=== PATIENT | male | born 1950 | race Caucasian/White ===

== ENCOUNTER 2020-05-26 06:34 | Day surgery (SDC) | payer MEDICARE, BC ==
[2020-05-22 16:05] VITALS: BMI 38.5
[2020-05-26] MEDS ORDERED: Iothalamate Meglumine 60% 50 ML VIAL FS ONE (08:14)
[2020-05-26] MEDS ORDERED: Fentanyl 100 MCG/2 ML VIAL ONE (08:51)
[2020-05-26] MEDS ORDERED: SUGAMMADEX SODIUM 500 MG/5 ML VIAL ONE (09:23)
--- NOTE | 2020-05-26 10:14 | OP ---
DATE OF PROCEDURE: 05/26/2020 PREOPERATIVE DIAGNOSES: 1. Gross and microscopic hematuria. 2. Atrophic left kidney. POSTOPERATIVE DIAGNOSES: 1. Gross and microscopic hematuria. 2. Atrophic left kidney. PROCEDURE PERFORMED: Cysto, left retrograde, and left stent placement. ANESTHETIC: General. ESTIMATED BLOOD LOSS: Minimal. FINDINGS: He had moderate lateral and median lobes. He had no bladder tumor, foreign body, or stone. Retrograde study showed a distal third left ureteral stone. Earlier, it did not have any hydro related to it. We were able to manipulate by it with an angled-tip Glidewire. DRAINS PLACED: A 4.8 x 24 double-J stent. OPERATIVE TECHNIQUE: After obtaining written and verbal consent from the patient after receiving IV antibiotics, he was taken to the operating suite. He was placed in supine position on the treatment table. PlexiPulses were placed on his lower extremities and turned on. He was given a general anesthetic and endotracheal intubation. He was then placed in the dorsal lithotomy position and sterilely prepped and draped for the above procedure. The fluoroscopy unit was brought down and positioned over him, and a audiovisual production specialist film was taken. There was a calcification in the left lower quadrant. His prior CT had not shown a left distal ureteral stone, however. We then went ahead and performed cystoscopy with a 22-Mauritian sheath. This was well lubricated and passed under direct vision through the male urethra into the urinary bladder with the aid of a 30-degree lens, video camera, and monitor. The bladder was filled and emptied a number of times. A 5-Mauritian cone-tip catheter was flushed with contrast placed in the left ureteral orifice and about 10 cc of contrast were injected in a retrograde manner showing no hydronephrosis, but a persistent filling defect in the lower third of the left ureter in the region where calcification was seen on the audiovisual production specialist film. We attempted to feed a guidewire past this, it would not go, so we sent a [place] up to this location just distal to the stone and then used the angled Glidewire to get by it, then passed the Pollack catheter up in the region of the renal pelvis, removing the Glidewire and replacing it with a guidewire, removing the Pollack catheter and then placing the 4.8 x 24 double-J stent over the guidewire and pushing it into place with aid of a pusher, so its proximal end coiled in the renal pelvis and its distal end coiled in the bladder when the wire was removed. The bladder was drained. The instruments were removed. The string was left attached to the distal end of the stent and was cut 2 to 3 inches distal to the urethral meatus. He was removed from the dorsal lithotomy position to the supine position and awakened, extubated, and taken by stretcher to the recovery room. Job ID: [id number]
[2020-05-26] MEDS ORDERED: Lidocaine 1% PF 5 ML VIAL ONE (10:29)
[2020-05-26] MEDS ORDERED: Rocuronium Bromide 10 MG/ML (10ML VIAL) ONE (10:29)
[2020-05-26] MEDS ORDERED: Ondansetron PF 4 MG/2 ML Vial ONE (10:29)
[2020-05-26] MEDS ORDERED: PROPOFOL 200 MG/20 ML VIAL ONE (10:29)
[2020-05-26] MEDS ORDERED: Dexamethasone 20 MG/5 ML VIAL ONE (10:29)
--- NOTE | 2020-05-27 07:07 | RAD ---
XR IVP Retrograde History: Ureteral stent placement Comparison: CT abdomen and pelvis May 06, 2020 Findings: Multiple fluoroscopic images were obtained. Placement of a left double-J ureteral stent. Th e left distal ureteral calculus is still present. Impression: Fluoroscopy for procedure purposes.
--- NOTE | 2020-05-27 22:10 | EKG ---
Test Reason : PREOP Blood Pressure : / mmHG Vent. Rate : 059 BPM Atrial Rate : 059 BPM P-R Int : 200 ms QRS Dur : 092 ms QT Int : 440 ms P-R-T Axes : 064 -13 063 degrees QTc Int : 435 ms Sinus bradycardia Nonspecific ST and T wave abnormality Abnormal ECG No previous ECGs available Confirmed by Yoon HENRY ([id number]) on 05/27/2020 10:10:03 PM Referred By: CLARK Confirmed By:Yoon HENRY
== END 2020-05-26 11:15 | disposition home or self-care (01) ==
LOC: SDC 06:34
PROVIDERS: ATTEND Urology
PROC: 0T778DZ Dilation of Left Ureter with Intraluminal Device, Via Natural or Artificial Opening Endoscopic (ICD-10-PCS; principal; 2020-05-26)
DX: N26.1 Atrophy of kidney (terminal) (principal); N20.1 Calculus of ureter; I10 Essential (primary) hypertension; E78.5 Hyperlipidemia, unspecified; F41.9 Anxiety disorder, unspecified; G47.30 Sleep apnea, unspecified; E66.01 Morbid (severe) obesity due to excess calories; Z68.38 Body mass index [BMI] 38.0-38.9, adult; Z79.82 Long term (current) use of aspirin; Z79.899 Other long term (current) drug therapy; Z95.1 Presence of aortocoronary bypass graft
CPT/HCPCS: 74420; 93005; 93010; J0690; J1100; J2405; J2704; J3010

== ENCOUNTER 2020-06-02 15:17 | Outpatient (CLI) | payer MEDICARE, BC ==
[2020-05-23 14:14] LABS: Hemoglobin 17.1 g/dL (13.5-17.5); Mean Corpuscular HGB CONC 32.3 g/dL (32.0-36.0); Mean Corpuscular Hemoglobin 28.3 pg (27.0-33.0); Mean Corpuscular Volume 87.6 fl (81.2-95.1); Platelet Count 227 10x3/uL (150-450); RBC Distribution Width 16.3 % (11.5-14.5); Red Blood Cell (RBC) Count 6.04 10x6/uL (4.32-5.72); White Blood Cell (WBC) Count 11.3 10x3/uL (3.5-10.5)
[2020-05-23 14:32] LABS: Anion Gap 17 mmol/L (10-20); BUN (Urea Nitrogen) 33 mg/dL (8.4-25.7); Calc. Creatinine Clearance 0 mL/min (70-130); Calcium 8.9 mg/dL (7.8-10.44); Carbon Dioxide 24 mmol/L (23-31); Chloride 106 mmol/L (98-107); Glucose 88 mg/dL (83-110); Sodium 142 mmol/L (136-145)
[2020-05-23 14:36] LABS: PTT 29.4 sec (22.0-33.0); Prothrombin Time 10.7 sec (9.5-12.1)
[2020-05-23 15:56] LABS: Bilirubin Neg (Negative); Blood, Urine 150 (Negative); Clarity Clear (Clear); Glucose, Urine (Dipstick) Normal (Negative); Ketone, Urine Negative (Negative); Leukocyte Negative (Negative); Nitrite Negative (Negative); Protein, Urine (Dipstick) 30 mg/dl (Neg-Trace); Specific Gravity, Urine 1.015 (1.002-1.036); Urobilinogen Normal mg/dL (Less than 2)
[2020-05-23 16:57] LABS: Squamous Epithelial 0-3 HPF (0-3)
[2020-05-23 16:58] LABS: Bacteria/HPF Rare-Few HPF (None Seen); Mucous/LPF Rare LPF (<2+)
[2020-05-23 22:16] LABS: SARS-CoV-2 PCR by NAA Not Detected (NotDetected)
[2020-06-02 16:40] LABS: Bilirubin Neg (Negative); Blood, Urine 250 (Negative); Clarity Cloudy (Clear); Glucose, Urine (Dipstick) Normal (Negative); Ketone, Urine Negative (Negative); Leukocyte 100 (Negative); Nitrite Negative (Negative); Protein, Urine (Dipstick) 30 mg/dl (Neg-Trace); Specific Gravity, Urine 1.015 (1.002-1.036); Urobilinogen Normal mg/dL (Less than 2); pH, Urine 6.5 (5.0-9.0)
[2020-06-02 16:47] LABS: RBC/HPF Greater than 50 HPF (0-3)
[2020-06-02 16:48] LABS: Bacteria/HPF Rare-Few HPF (None Seen); Mucous/LPF Rare LPF (<2+); Squamous Epithelial 0-3 HPF (0-3); Transitional Epithelial 0-3 HPF (None Seen)
[2020-06-03 01:55] LABS: SARS-CoV-2 PCR by NAA Not Detected (NotDetected)
== END 2020-06-02 15:18 | disposition home or self-care (01) ==
LOC: LABBT 15:17
PROVIDERS: ATTEND Urology
DX: Z01.812 Encounter for preprocedural laboratory examination (principal); Z20.822 Contact with and (suspected) exposure to COVID-19; N20.1 Calculus of ureter
CPT/HCPCS: 80048; 81001 ×2; 85027; 85610; 85730; 87086 ×2; U0003 ×2; U0005 ×2; 87635

== ENCOUNTER 2020-06-05 11:57 | Day surgery (SDC) | payer MEDICARE, BC ==
[2020-06-04 09:09] VITALS: BMI 38.5
[~2020-06-05 11:57] MED LIST: Glycopyrrolate 0.2 MG/ML 5 ML SYRINGE ONE; Lidocaine 1% PF 5 ML VIAL ONE; Ondansetron PF 4 MG/2 ML Vial ONE; PHENYLEPHRINE-NS 100 MCG/ML 10 ML SYRINGE ONE; PROPOFOL 200 MG/20 ML VIAL ONE; Rocuronium Bromide 10 MG/ML (10ML VIAL) ONE; Succinylcholine 200 MG/10 ml SYRINGE FS ONE
[2020-06-05] MEDS ORDERED: Levofloxacin 500 mg/D5W 100 ml Premix Bag ONE (12:11)
[2020-06-05] MEDS ORDERED: Iothalamate Meglumine 60% 50 ML VIAL FS ONE (13:44)
[2020-06-05] MEDS ORDERED: Fentanyl 100 MCG/2 ML VIAL ONE (13:48)
--- NOTE | 2020-06-05 15:29 | RAD ---
EXAM: Retrograde IVP HISTORY: Stent for kidney stones COMPARISON: 05/26/2020 FINDINGS/IMPRESSION: Limited intraoperative fluoroscopic views of the retrograde IVP were submitted f or interpretation. Patient has a left-sided ureteral stent. A wire is eventually placed and contrast administered. The patient has mild to moderate left hydronephrosis. A stent is been replaced and appears in good position.
--- NOTE | 2020-06-05 23:07 | OP ---
DATE OF PROCEDURE: 06/05/2020 PREOPERATIVE DIAGNOSIS: Left ureteral stone. POSTOPERATIVE DIAGNOSIS: Left ureteral stone. PROCEDURES PERFORMED: Cystoscopy, removal of left stent, left rigid ureteroscopy and laser lithotripsy, stone retrieval, and stent replacements. ANESTHETIC: General. ESTIMATED BLOOD LOSS: Minimal. DRAINS PLACED: A 6 x 26 Polaris double-J stent with a string left attached. FINDINGS: He had a 6 to 7 mm left lower third ureteral stone that had not changed position from the time of stent was placed a number of days ago. DESCRIPTION OF PROCEDURE: Obtained written and verbal consent from the patient. After receiving IV antibiotics, he was taken to the operating suite. He was placed in a supine position on the treatment table. PlexiPulses were placed on his lower extremities and turned on. He was given a general anesthetic or oral intubation. He was sterilely prepped and draped for cystoscopy and fluoroscopy was positioned over him. The stone could easily be seen. The indwelling double-J stent was attached to a string, which was brought out through the urethral meatus and a guidewire was fed through this. Fluoroscopic guidance was used to allow the guidewire to go up into the region of the renal pelvis. The stent was removed off the guidewire and discarded. We then brought in a small caliber rigid ureteroscope, passed it under direct vision to the male urethra into the urinary bladder and went up the left ureter adjacent to the guidewire. The stone was easy to get to. The ureter was normal. We used a laser fiber to break it up into smaller and smaller to Whittle away at it to a piece that was small enough to remove that was sent off. The rest of the pieces were small and were not retrieved. We went as far up as about mid ureter with the rigid scope and the distal half of the ureter was completely normal. At this point, the instruments were removed. The cystoscope was backloaded across the green guidewire and then a Pollack catheter was advanced on the green guidewire, placed up to the region of the renal pelvis. Contrast was injected that still showed some hydronephrosis of the upper collecting system. Ureter without any filling defects or extravasation. A new 6 x 26 Polaris double-J stent was placed over the guidewire that had been replaced through the Pollack catheter and then, the stent was pushed up the guidewire and then the guidewire was removed leaving the proximal. The stent coiled in the renal pelvis and its distal end coiled in the bladder. The bladder was drained. The instruments were removed. The string that was attached to the stent was cut about 3 inches distal to the urethral meatus. He was taken out of the dorsal lithotomy position, awakened, extubated, and taken by stretcher to the recovery room. Job ID: [id number]
== END 2020-06-05 15:45 | disposition home or self-care (01) ==
LOC: SDC 11:57
PROVIDERS: ATTEND Urology
PROC: 0TP98DZ Removal of Intraluminal Device from Ureter, Via Natural or Artificial Opening Endoscopic (ICD-10-PCS; principal; 2020-06-05)
PROC: 0TC78ZZ Extirpation of Matter from Left Ureter, Via Natural or Artificial Opening Endoscopic (ICD-10-PCS; 2020-06-05)
PROC: 0T778DZ Dilation of Left Ureter with Intraluminal Device, Via Natural or Artificial Opening Endoscopic (ICD-10-PCS; 2020-06-05)
DX: N13.2 Hydronephrosis with renal and ureteral calculous obstruction (principal); I25.10 Atherosclerotic heart disease of native coronary artery without angina pectoris; I25.2 Old myocardial infarction; I10 Essential (primary) hypertension; F41.9 Anxiety disorder, unspecified; F32.9 Major depressive disorder, single episode, unspecified; Z79.82 Long term (current) use of aspirin; Z79.899 Other long term (current) drug therapy; Z95.1 Presence of aortocoronary bypass graft
CPT/HCPCS: 74420; 82365; 88300; J1956; J2405; J2704; J3010

== ENCOUNTER 2021-01-21 10:45 | Outpatient (CLI) | payer MEDICARE, BC ==
[2021-01-21 11:45] LABS: Hemoglobin 16.7 g/dL (13.5-17.5); Mean Corpuscular HGB CONC 31.9 g/dL (32.0-36.0); Mean Corpuscular Hemoglobin 28.2 pg (27.0-33.0); Mean Corpuscular Volume 88.3 fl (81.2-95.1); Mean Platelet Volume 9.6 fl (7.4-10.4); Platelet Count 239 10x3/uL (150-450); RBC Distribution Width 15.5 % (11.5-14.5); Red Blood Cell (RBC) Count 5.92 10x6/uL (4.32-5.72); White Blood Cell (WBC) Count 10.9 10x3/uL (3.5-10.5)
[2021-01-21 12:25] LABS: PTT 29.8 sec (22.0-33.0); Prothrombin Time 10.9 sec (9.5-12.1)
[2021-01-21 12:28] LABS: Bilirubin Neg (Negative); Blood, Urine 10 (Negative); Clarity Clear (Clear); Glucose, Urine (Dipstick) Normal (Negative); Ketone, Urine Negative (Negative); Leukocyte Negative (Negative); Nitrite Negative (Negative); Protein, Urine (Dipstick) 30 mg/dl (Neg-Trace); Urobilinogen Normal mg/dL (Less than 2)
[2021-01-21 12:33] LABS: Anion Gap 14 mmol/L (10-20); BUN (Urea Nitrogen) 25 mg/dL (8.4-25.7); Calc. Creatinine Clearance 0 mL/min (70-130); Calcium 9.2 mg/dL (7.8-10.44); Carbon Dioxide 24 mmol/L (23-31); Chloride 108 mmol/L (98-107); Glucose 106 mg/dL (83-110); Potassium 4.9 mmol/L (3.5-5.1); Sodium 141 mmol/L (136-145)
[2021-01-21 12:46] LABS: RBC/HPF 0-3 HPF (0-3); Squamous Epithelial 0-3 HPF (0-3); WBC/HPF None Seen HPF (0-3)
[2021-01-21 12:47] LABS: Bacteria/HPF None Seen HPF (None Seen)
[2021-01-21 22:21] LABS: SARS-CoV-2 PCR by NAA Not Detected (NotDetected)
== END 2021-01-21 10:46 | disposition home or self-care (01) ==
LOC: LABBT 10:45
PROVIDERS: ATTEND Urology
DX: Z01.818 Encounter for other preprocedural examination (principal); N20.0 Calculus of kidney; Z20.822 Contact with and (suspected) exposure to COVID-19
CPT/HCPCS: 80048; 81001; 85027; 85610; 85730; 87086; U0003; U0005; 93005; 93010

== ENCOUNTER 2021-01-26 09:12 | Day surgery (SDC) | payer MEDICARE, BC ==
[2021-01-22 14:37] VITALS: BMI 43.6
[2021-01-26 09:44] LABS: Platelet Count 240 thou/uL (130-400)
[2021-01-26 10:00] LABS: EPI 118 SEC (67-199)
[2021-01-26] MEDS ORDERED: Iothalamate Meglumine 60% 50 ML VIAL FS ONE (10:24)
[2021-01-26] MEDS ORDERED: HYDROmorphone 2 MG/ML VIAL ONE (10:38)
[2021-01-26] MEDS ORDERED: SUGAMMADEX SODIUM 200 MG/2 ML VIAL ONE (10:38)
[2021-01-26] MEDS ORDERED: Fentanyl 100 MCG/2 ML VIAL ONE (10:38)
[2021-01-26] MEDS ORDERED: Lidocaine 1% PF 5 ML VIAL ONE (10:50)
[2021-01-26] MEDS ORDERED: ePHEDrine 50 MG/ML VIAL ONE (10:50)
[2021-01-26] MEDS ORDERED: PHENYLEPHRINE-NS 100 MCG/ML 10 ML SYRINGE ONE (10:50)
[2021-01-26] MEDS ORDERED: Dexamethasone 20 MG/5 ML VIAL ONE (10:50)
[2021-01-26] MEDS ORDERED: Ondansetron PF 4 MG/2 ML Vial ONE (10:50)
[2021-01-26] MEDS ORDERED: Rocuronium Bromide 10 MG/ML (10ML VIAL) ONE (10:50)
[2021-01-26] MEDS ORDERED: PROPOFOL 200 MG/20 ML VIAL ONE (10:50)
== END 2021-01-26 13:17 | disposition home or self-care (01) ==
LOC: SDC 09:12
PROVIDERS: ATTEND Urology
PROC: 0TF3XZZ Fragmentation in Right Kidney Pelvis, External Approach (ICD-10-PCS; principal; 2021-01-26)
DX: N20.0 Calculus of kidney (principal); I25.10 Atherosclerotic heart disease of native coronary artery without angina pectoris; I25.2 Old myocardial infarction; I10 Essential (primary) hypertension; G47.30 Sleep apnea, unspecified; Z79.82 Long term (current) use of aspirin; Z79.899 Other long term (current) drug therapy; Z95.1 Presence of aortocoronary bypass graft
CPT/HCPCS: 36415; 85576; J1100; J1170; J2405; J2704; J3010; J3490; Q9961-U8

== ENCOUNTER 2021-10-12 20:26 | Inpatient (IN) | payer MEDICARE, BC ==
[~2021-10-12 20:26] MED LIST changes: -Glycopyrrolate 0.2 MG/ML 5 ML SYRINGE ONE; +Iopamidol-370 76% 500 ML 1 ML ONE; -Lidocaine 1% PF 5 ML VIAL ONE; -Ondansetron PF 4 MG/2 ML Vial ONE; -PHENYLEPHRINE-NS 100 MCG/ML 10 ML SYRINGE ONE; -PROPOFOL 200 MG/20 ML VIAL ONE; -Rocuronium Bromide 10 MG/ML (10ML VIAL) ONE; -Succinylcholine 200 MG/10 ml SYRINGE FS ONE
[2021-10-12 20:56] LABS: Actual Bicarbonate (HCO3a) 18.9 mEq/L (22-28); Analyzer IN Cardio ER; Base Excess (BEa) -7.2 mEq/L (-2.0 to +3.0); CO2 Tension 40.4 mmHg (35.0-45.0); Calcium, Ionized (arterial) 1.09 mmol/L (1.12-1.30); Carboxyhemoglobin (COHb) 0.3 gm% (0.0-3.0); Hemoglobin (Hb) 18.7 g/dL (14.0-18.0); O2 Tension (PaO2), arterial 107.7 mmHg (> 70.0); Potassium - ABG Lab 5.51 mmol/L (3.70-5.30); pH, Arterial 7.29 (7.35-7.45)
[2021-10-12 20:59] LABS: Mean Corpuscular HGB CONC 32.6 g/dL (32.0-36.0); Mean Corpuscular Hemoglobin 28.9 pg (27.0-31.0); Mean Corpuscular Volume 88.7 fL (78.0-98.0); Mean Platelet Volume 7.8 fL (7.4-10.4); Platelet Count 302 thou/uL (130-400); RBC Distribution Width 15.6 % (11.5-14.5); Red Blood Cell (RBC) Count 6.22 mill/uL (4.70-6.10)
[2021-10-12] MEDS ORDERED: cefTRIAXone\\ROCEPHIN 2 GM in Sodium Chloride 0.9% 100 ML IVPB SCH (21:00)
[2021-10-12] MEDS ORDERED: Fentanyl 100 MCG/2 ML VIAL ONE (21:03)
[2021-10-12 21:14] LABS: ALT (SGPT) 64 U/L (8-55); AST (SGOT) 106 U/L (5-34); Albumin 3.9 g/dL (3.4-4.8); Alkaline Phosphatase 145 U/L (40-110); Anion Gap 22 mmol/L (10-20); BUN (Urea Nitrogen) 31 mg/dL (8.4-25.7); Calc. Creatinine Clearance 0 mL/min (70-130); Calcium 8.4 mg/dL (7.8-10.44); Carbon Dioxide 19 mmol/L (23-31); Chloride 107 mmol/L (98-107); Estimated GFR 37; Globulin 3.2 g/dL (2.4-3.5); Glucose 135 mg/dL (83-110); Potassium 6.1 mmol/L (3.5-5.1); Protein, Total 7.1 g/dL (5.8-8.1); Sodium 142 mmol/L (136-145)
[2021-10-12] MEDS ORDERED: Fentanyl CADD 100 ML IV SCH (21:15)
[2021-10-12 21:17] LABS: Amphetamine Not Detected (NotDetected); Barbiturates Screen Not Detected (NotDetected); Benzodiazepine Screen Not Detected (NotDetected); Cocaine Metabolite Screen Not Detected (NotDetected); Methadone Not Detected (NotDetected); Methamphetamine Not Detected (NotDetected); Opiate Screen Not Detected (NotDetected); Oxycodone Screen Not Detected (NotDetected); Phencyclidine (PCP) Not Detected (NotDetected); THC/Cannabinoid Screen Not Detected (NotDetected); Tricyclic Screen Not Detected (NotDetected)
[2021-10-12 21:17] LABS: Band 5 % (5-11); Lymphocytes 10 % (21-51); MDiff Complete? YES; Monocytes 10 % (0-10); Neutrophil 75 % (42-75); Platelet Morphology Comment Appears Adequate; RBC Morphology Normal; White Blood Cell (WBC) Count 20.6 thou/uL (4.8-10.8)
[2021-10-12 21:20] LABS: Puncture Site RRA
[2021-10-12 21:24] LABS: Bilirubin Negative (Negative); Blood, Urine 3+ (Negative); Clarity Turbid (Clear); Glucose, Urine (Dipstick) 100 mg/dL (Negative); Ketone, Urine Negative (Negative); Leukocyte Negative Leu/uL (Negative); Nitrite Negative (Negative); Protein, Urine (Dipstick) 300 mg/dL (Neg-Trace); RBC/HPF Greater than 50 HPF (0-3); Specific Gravity, Urine 1.019 (1.002-1.036); Squamous Epithelial 0-3 HPF (0-3); Urobilinogen Normal mg/dL (Less than 2); WBC/HPF Greater than 50 HPF (0-3); pH, Urine 6.5 (5.0-9.0)
[2021-10-12 21:26] LABS: Bacteria/HPF 1+ HPF (None Seen)
[2021-10-12 21:40] LABS: Acetaminophen Less than 10.0 mcg/mL (10.0-30.0); Alcohol Less than 10 mg/dL (Less than 10); Salicylate Less than 8.0 mg/dL (15.0-30.0)
[2021-10-12] MEDS ORDERED: Propofol 1,000 MG/100 ML VIAL IV ONE (22:03)
[2021-10-12] MEDS ORDERED: Lidocaine 1% MPF 2 ML VIAL ONE (22:15)
[2021-10-12] MEDS ORDERED: Calcium Chloride 1 GM/10 ML Abboject SYRINGE ONE (23:30)
[2021-10-12] MEDS ORDERED: Aspirin 300 MG Suppository ONE (23:30)
[2021-10-12] MEDS ORDERED: Sodium Bicarb 50 MEQ/50 ML Abboject 8.4% SYRINGE ONE (23:30)
[2021-10-12] MEDS ORDERED: Enoxaparin Sodium 100 MG/ML SYRINGE ONE (23:30)
[2021-10-12] MEDS ORDERED: Enoxaparin Sodium 40 MG/0.4 ML SYRINGE ONE (23:31)
[2021-10-13] MEDS ORDERED: Ondansetron PF 4 MG/2 ML Vial IVP PRN (00:01)
[2021-10-13] MEDS ORDERED: Norepinephrine 8 MG/0.9% NS 250 ML IVPB PRN (00:01)
[2021-10-13] MEDS ORDERED: Ventilator Sedation Protocol 1 EACH FS SCH (00:15)
[2021-10-13] MEDS ORDERED: Lactated Ringer's 1,000 ML IV SCH ×3 (00:15→08:37)
[2021-10-13 00:16] LABS: INR-International Normal Ratio 1.1; PTT 31.2 sec (22.9-36.1); Prothrombin Time 14.6 sec (12.0-14.7)
[2021-10-13] MEDS ORDERED: Midazolam HCl 2 mg/2 ml Vial SLOW IVP PRN (00:21)
[2021-10-13 00:24] LABS: Lactic Acid 4.2 mmol/L (0.5-2.2)
[2021-10-13] MEDS ORDERED: Propofol BOLUS 1,000 MG/100 ML VIAL IV PRN (00:30)
[2021-10-13] MEDS ORDERED: DISCONTINUE PREVIOUS NARCOTIC PAIN MEDICATIONS AND BENZODIAZEPINES FS SCH (00:30)
[2021-10-13] MEDS ORDERED: Morphine 2 MG/ML VIAL SLOW IVP PRN (00:30)
[2021-10-13] MEDS ORDERED: Fentanyl CADD 100 ML IV SCH (00:30)
[2021-10-13] MEDS ORDERED: Fentanyl BOLUS 250 ML IVPB PRN (00:30)
[2021-10-13] MEDS ORDERED: Propofol 1,000 MG/100 ML VIAL IV PRN (00:30)
[2021-10-13] MEDS ORDERED: Propofol 1,000 MG/100 ML VIAL IV ONE (00:43)
[2021-10-13] MEDS ORDERED: Acetaminophen 325 MG TAB PO PRN (01:00)
[2021-10-13 01:03] LABS: CKMB 12.6 ng/mL (0-6.6)
[2021-10-13 01:45] VITALS: BMI 40.1
[2021-10-13 02:15] LABS: Anion Gap 18 mmol/L (10-20); BUN (Urea Nitrogen) 38 mg/dL (8.4-25.7); Calc. Creatinine Clearance 55 mL/min (70-130); Calcium 9.1 mg/dL (7.8-10.44); Carbon Dioxide 19 mmol/L (23-31); Chloride 109 mmol/L (98-107); Estimated GFR 27; Glucose 143 mg/dL (83-110); Potassium 4.5 mmol/L (3.5-5.1); Sodium 141 mmol/L (136-145)
[2021-10-13 03:43] LABS: Hemoglobin A1c 5.4 % (4.0-6.0)
[2021-10-13 04:09] LABS: Cardiac Risk 4.3 (Less than 4.5)
[2021-10-13] MEDS: DOBUTamine 500 mg/250 ml 250 ML IVPB SCH ×3 (04:20→13:51)
[2021-10-13 04:29] LABS: Lactic Acid 3.4 mmol/L (0.5-2.2)
[2021-10-13 04:34] LABS: CKMB 17.8 ng/mL (0-6.6)
[2021-10-13] MEDS ORDERED: EPINEPHrine 4 MG in Dextrose 5% in Water 250 ML IVPB SCH (05:00)
[2021-10-13 05:26] LABS: Base Excess (BEa) -8.8 mEq/L (-2.0 to +3.0); CO2 Tension 41.7 mmHg (35.0-45.0); Calcium, Ionized (arterial) 1.16 mmol/L (1.12-1.30); O2 Tension (PaO2), arterial 57.5 mmHg (> 70.0); Potassium - ABG Lab 4.13 mmol/L (3.70-5.30); pH, Arterial 7.25 (7.35-7.45)
[2021-10-13] MEDS ORDERED: Carvedilol 3.125 MG TAB PO SCH (09:00)
[2021-10-13] MEDS ORDERED: Pantoprazole 40 MG VIAL IVP SCH (09:00)
[2021-10-13] MEDS ORDERED: Escitalopram Oxalate 10 mg Tablet PO SCH (09:00)
[2021-10-13] MEDS ORDERED: Bupropion 150 MG XL TAB PO SCH (09:00)
[2021-10-13 09:35] LABS: Actual Bicarbonate (HCO3a) 16.4 mEq/L (22-28); Analyzer IN Cardio ER; Base Excess (BEa) -8.7 mEq/L (-2.0 to +3.0); CO2 Tension 33.4 mmHg (35.0-45.0); Calcium, Ionized (arterial) 1.12 mmol/L (1.12-1.30); Carboxyhemoglobin (COHb) 0.3 gm% (0.0-3.0); Hemoglobin (Hb) 16.8 g/dL (14.0-18.0); Potassium - ABG Lab 3.38 mmol/L (3.70-5.30); pH, Arterial 7.31 (7.35-7.45)
[2021-10-13 09:40] LABS: O2 Tension (PaO2), arterial 56.8 mmHg (> 70.0)
[2021-10-13 09:41] LABS: Puncture Site RRA
[2021-10-13] MEDS: EPINEPHrine 4 MG in Dextrose 5% in Water 250 ML IVP SCH ×2 (11:15→17:24)
[2021-10-13 13:58] VITALS: TEMP 99.5
[2021-10-13 14:26] VITALS: BP 94/72
[2021-10-13] MEDS: Morphine 2 MG/ML VIAL SLOW IVP PRN ×8 (18:24→21:00)
[2021-10-13] MEDS ORDERED: Heparin 5,000 UNITS/ML VIAL SC SCH (21:00)
[2021-10-13] MEDS ORDERED: Atorvastatin Calcium 10 MG TAB PO SCH (21:00)
[2021-10-13] MEDS ORDERED: Dutasteride 0.5 MG CAP PO SCH (21:00)
[2021-10-13] MEDS ORDERED: cefTRIAXone\\ROCEPHIN 2 GM in Sodium Chloride 0.9% 100 ML IVPB SCH (21:00)
[2021-10-14] MEDS ORDERED: Aspirin Chewable 81 MG TAB PER TUBE SCH (09:00)
== END 2021-10-13 21:25 | disposition expired | DRG 308 ==
LOC: ERS 20:26 → CCU 23:06
PROVIDERS: ADMIT Student in an Organized Health Care Education/Training Program; ATTEND Family Medicine
PROC: 5A1935Z Respiratory Ventilation, Less than 24 Consecutive Hours (ICD-10-PCS; principal; 2021-10-12)
PROC: 02HV33Z Insertion of Infusion Device into Superior Vena Cava, Percutaneous Approach (ICD-10-PCS; 2021-10-12)
PROC: 3E043XZ Introduction of Vasopressor into Central Vein, Percutaneous Approach (ICD-10-PCS; 2021-10-12)
DX: I49.01 Ventricular fibrillation (principal); Z51.5 Encounter for palliative care; Z66 Do not resuscitate; G93.41 Metabolic encephalopathy; J96.01 Acute respiratory failure with hypoxia; K72.01 Acute and subacute hepatic failure with coma; N17.0 Acute kidney failure with tubular necrosis; E87.2 Acidosis; Z68.41 Body mass index [BMI] 40.0-44.9, adult; N39.0 Urinary tract infection, site not specified; Z20.822 Contact with and (suspected) exposure to COVID-19; I46.2 Cardiac arrest due to underlying cardiac condition; I11.0 Hypertensive heart disease with heart failure; E87.5 Hyperkalemia; R74.01 Elevation of levels of liver transaminase levels; I50.9 Heart failure, unspecified; F41.9 Anxiety disorder, unspecified; F32.A Depression, unspecified; E78.5 Hyperlipidemia, unspecified; S02.2XXA Fracture of nasal bones, initial encounter for closed fracture; R19.7 Diarrhea, unspecified; R57.0 Cardiogenic shock; I25.10 Atherosclerotic heart disease of native coronary artery without angina pectoris; N20.0 Calculus of kidney; E66.9 Obesity, unspecified; D72.829 Elevated white blood cell count, unspecified; W07.XXXA Fall from chair, initial encounter; Y92.000 Kitchen of unspecified non-institutional (private) residence as the place of occurrence of the external cause; Z95.1 Presence of aortocoronary bypass graft; Z87.442 Personal history of urinary calculi; Z98.890 Other specified postprocedural states; Z82.49 Family history of ischemic heart disease and other diseases of the circulatory system; Z79.899 Other long term (current) drug therapy; Z79.82 Long term (current) use of aspirin; Z78.1 Physical restraint status
CPT/HCPCS: 36415; 36416; 36600; 70450; 71045; 71260; 72125; 74177; 80048; 80061; 80306; 80307; 82553; 82805; 83036; 83605; 83880; 84145; 84443; 84484; 86850; 86900; 86901; 87040; 87077; 87086; 87149; 93005; 93306; 94002; 94003; C9113; J0171; J0696; J1250; J1650; J2270; J2704; J3010; J3490; J7070; J7120; Q9967